=== PATIENT | female | born 1990 | race Caucasian/White ===

== ENCOUNTER 2017-11-03 01:15 | Observation (INO) | payer OTHER ==
[~2017-11-03] VITALS: Ht 165.1 cm; Wt 95.2 kg
[~2017-11-03 01:15] MED LIST: Amoxicillin875 MG PO; Bactrim Ds Tab1 EACH PO; CEPH500 PO; HEMOTO PR; IBUP600 PO; MIRENA BIRTH CONTROL; NAPR500 PO; Norco 5-325 Ta1 EACH PO; OLAN5 PO; PROM25 PO; SERT25 PO
[2017-11-03 01:58] LABS: BASOPHILS ABSOLUTE AUTO 0.07 K/mm3 (0.00-0.23); BASOPHILS PERCENT AUTO 1 % (0-2); EOSINOPHILS ABSOLUTE AUTO 0.57 K/mm3 (0.00-0.68); EOSINOPHILS PERCENT AUTO 6 % (0-6); Hematocrit 39.2 % (33.0-51.0); Hemoglobin 12.9 g/dL (11.5-16.0); IMMATURE GRAN ABSOLUTE AUTO 0.01 K/mm3 (0.00-0.10); IMMATURE GRAN PERCENT AUTO 0 % (0-1); LYMPHOCYTES ABSOLUTE AUTO 4.18 K/mm3 (0.84-5.20); LYMPHOCYTES PERCENT AUTO 42 % (21-46); MONOCYTES ABSOLUTE AUTO 0.83 K/mm3 (0.16-1.47); MONOCYTES PERCENT AUTO 8 % (4-13); Mean Corpuscular HGB 30.2 pg (26.0-34.0); Mean Corpuscular HGB Conc 32.9 g/dL (31.5-36.5); Mean Corpuscular Volume 92 fL (80-100); Mean Platelet Volume 9.8 fL (9.1-12.4); NEUTROPHILS ABSOLUTE AUTO 4.29 K/mm3 (1.96-9.15); NEUTROPHILS PERCENT AUTO 43 % (41-73); Platelet Count 340 K/mm3 (150-400); RDW Coefficient Variation 12.2 % (11.7-14.2); RDW Standard Deviation 41.4 fL (35.1-46.3); Red Blood Cell Count 4.27 M/mm3 (3.80-5.20); White Blood Cell Count 9.95 K/mm3 (4.00-11.30)
[2017-11-03 02:20] LABS: Alanine Aminotransfer (ALT/SGP 17 U/L (12-78); Albumin, Blood 3.9 g/dL (3.4-5.0); Albumin/Globulin Ratio 1.1 (0.8-1.8); Alk Phos 97 U/L (50-136); Anion Gap 9 mmol/L (6-16); Aspartate Aminotrans (AST/SGOT 16 U/L (12-37); Bilirubin, Total 0.6 mg/dL (0.1-1.0); Blood Urea Nitrogen 15 mg/dL (8-24); Bun/Creatinine Ratio 23.4 (12.0-20.0); CO2, Blood 24 mmol/L (21-32); Calcium, Blood 8.5 mg/dL (8.5-10.1); Chloride, Blood 107 mmol/L (98-108); Creatinine, Blood 0.64 mg/dL (0.40-1.00); Ethanol (Alcohol), Blood, Med <3 mg/dL; Globulin, Blood 3.7 g/dL (2.2-4.0); Glomerular Filtration Rate >60 (60-); Glucose, Blood 95 mg/dL (70-99); Potassium, Blood 3.8 mmol/L (3.5-5.5); Salicylate 2.8 mg/dL (2.8-20.0); Sodium, Blood 140 mmol/L (136-145); Total Protein, Blood 7.6 g/dL (6.4-8.2); Troponin I <0.015 ng/mL (0.000-0.040)
[2017-11-03 02:37] LABS: Acetaminophen, Random <2.0 ug/mL (10.0-30.0)
[2017-11-03 04:17] LABS: Source, Urine Clean Catch
[2017-11-03 04:20] LABS: Bilirubin, Urine Neg (Neg); Blood, Urine 5+ (Neg); Glucose Qualitative, Urine Neg (Neg); Ketones, Urine 1+ (Neg); Leukocyte Esterase, Urine 2+ (Neg); Nitrite, Urine Pos (Neg); Protein, Urine 1+ (Neg); Specific Gravity, Urine 1.025 (1.003-1.022); Urobilinogen, Urine NORM (Normal)
[2017-11-03 04:22] LABS: Appearance, Urine Hazy (Clear); Color, Urine Amber (P-Yellow)
[2017-11-03 04:26] LABS: Bacteria Many /hpf; Red Blood Cells, Urine 0-2 /hpf (0-2); Squamous Epithelial Cells Few /hpf (Few)
[2017-11-03 04:40] LABS: U Amphetamine Screen DETECTED; U Barbituate Screen Not Detected; U Benzodiazapine Screen Not Detected; U Buprenorphine Screen Not Detected; U Cannabinoids Screen DETECTED; U Cocaine Screen Not Detected; U Methadone Screen Not Detected; U Methamphetamine Screen DETECTED; U Opiates Screen DETECTED; U Oxycodone Screen Not Detected; U Phencyclidine Screen Not Detected; U Propoxyphene Screen Not Detected
[2017-11-04 07:11] LABS: HBSAG SCREEN Negative (Negative); HEP A AB, IGM Negative (Negative); HEP B CORE AB, IGM Negative (Negative); HEP C VIRUS AB <0.1 (0.0-0.9)
[2017-11-05] MEDS ORDERED: Catapres0.1 MG PO (13:17)
[2017-11-05] MEDS ORDERED: Vistaril25 MG PO (13:17)
[2017-11-05] MEDS ORDERED: IBUP600 PO (13:17)
== END 2017-11-05 13:40 | disposition home or self-care (01) ==
LOC: ER 01:15 → EOR 01:16
PROVIDERS: Emergency Medicine
DX: T40.2X2A Poisoning by other opioids, intentional self-harm, initial encounter (principal); F15.10 Other stimulant abuse, uncomplicated; F11.20 Opioid dependence, uncomplicated; F32.89 Other specified depressive episodes; F17.200 Nicotine dependence, unspecified, uncomplicated; F20.9 Schizophrenia, unspecified; F32.9 Major depressive disorder, single episode, unspecified; N39.0 Urinary tract infection, site not specified; Z79.899 Other long term (current) drug therapy
CPT/HCPCS: 36415; 71046; 80053; 80074; 81001; 81025; 84443; 84484; 85025; 87077; 87086; 87186; 93005; 93010; 96361; 96374; 99285-25; G0378; G0480; J2310; J7030; Q3014

== ENCOUNTER 2018-03-11 16:42 | Emergency (ER) | payer OTHER ==
[~2018-03-11] VITALS: Ht 167.6 cm; Wt 87.1 kg
[~2018-03-11 16:42] MED LIST changes: +Catapres0.1 MG PO; +Flagyl500 MG PO; +Vibramycin100 MG PO; +Vistaril25 MG PO
[2018-03-11] MEDS ORDERED: METH5 (16:59)
[2018-03-11 17:14] LABS: Source, Urine Clean Catch
[2018-03-11 17:21] LABS: Appearance, Urine Cloudy (Clear); Bilirubin, Urine Neg (Neg); Blood, Urine 5+ (Neg); Color, Urine Yellow (P-Yellow); Glucose Qualitative, Urine Neg (Neg); Ketones, Urine Neg (Neg); Leukocyte Esterase, Urine 2+ (Neg); Nitrite, Urine Pos (Neg); Protein, Urine 2+ (Neg); Specific Gravity, Urine 1.015 (1.003-1.022); Urobilinogen, Urine 1+ (Normal)
[2018-03-11 17:28] LABS: Squamous Epithelial Cells Few /hpf (Few)
[2018-03-11 17:29] LABS: Bacteria Few /hpf
[2018-03-11 18:08] LABS: Alanine Aminotransfer (ALT/SGP 554 U/L (12-78); Albumin, Blood 3.6 g/dL (3.4-5.0); Albumin/Globulin Ratio 0.9 (0.8-1.8); Alk Phos 483 U/L (50-136); Anion Gap 7 mmol/L (6-16); Aspartate Aminotrans (AST/SGOT 523 U/L (12-37); Bilirubin, Total 1.6 mg/dL (0.1-1.0); Blood Urea Nitrogen 9 mg/dL (8-24); Bun/Creatinine Ratio 15.8 (12.0-20.0); CO2, Blood 26 mmol/L (21-32); Calcium, Blood 8.5 mg/dL (8.5-10.1); Chloride, Blood 103 mmol/L (98-108); Creatinine, Blood 0.57 mg/dL (0.40-1.00); Globulin, Blood 3.9 g/dL (2.2-4.0); Glomerular Filtration Rate >60 (60-); Glucose, Blood 97 mg/dL (70-99); Sodium, Blood 136 mmol/L (136-145); Total Protein, Blood 7.5 g/dL (6.4-8.2)
[2018-03-11] MEDS ORDERED: CEFD300 PO (18:20)
[2018-03-11] MEDS ORDERED: Cyclobenzaprine5 MG PO (18:49)
== END 2018-03-11 19:15 | disposition home or self-care (01) ==
LOC: ER 16:42
PROVIDERS: Emergency Medicine
DX: N12 Tubulo-interstitial nephritis, not specified as acute or chronic (principal); F11.23 Opioid dependence with withdrawal; M79.89 Other specified soft tissue disorders; Z79.899 Other long term (current) drug therapy; F20.9 Schizophrenia, unspecified; F17.200 Nicotine dependence, unspecified, uncomplicated
CPT/HCPCS: 36415; 80053; 81001; 81025; 87077; 87086; 87186; 96365; 96375; 99283-25; J0696; J2405; J7030

== ENCOUNTER 2018-05-18 19:20 | Emergency (ER) | payer OTHER ==
[~2018-05-18] VITALS: Ht 165.1 cm; Wt 87.5 kg
[~2018-05-18 19:20] MED LIST changes: +CEFD300 PO; +Cyclobenzaprine5 MG PO; +METH5
[2018-05-18] MEDS ORDERED: SERT50 PO (19:34)
== END 2018-05-18 23:29 | disposition left against medical advice (07) ==
LOC: ER 19:20
DX: Z53.21 Procedure and treatment not carried out due to patient leaving prior to being seen by health care provider (principal)

== ENCOUNTER → 2018-08-02 | Outpatient (CLI) | payer OTHER ==
[~2018-08-02] MED LIST changes: +SERT50 PO
[2018-08-06 13:06] LABS: HPV 16 Negative (Negative); HPV 18 Negative (Negative); HPV OTHER HR TYPES Negative (Negative)
== END | disposition home or self-care (01) ==
LOC: LAB 18:25 → LAB SHORT 18:25
PROVIDERS: Nurse Practitioner Family
DX: Z01.419 Encounter for gynecological examination (general) (routine) without abnormal findings (principal)
CPT/HCPCS: 87624; G0123

== ENCOUNTER → 2021-07-15 | Outpatient (CLI) | payer OTHER ==
[2021-07-16 09:09] LABS: HBSAG SCREEN Negative (Negative); HCV ANTIBODY >11.0 (0.0-0.9); HIV AB/P24 AG SCREEN Non Reactive (Non Reactive)
[2021-07-17 00:10] LABS: HPV 16 Negative (Negative); HPV 18 Negative (Negative); HPV OTHER HR TYPES Negative (Negative)
[2021-07-19 10:48] LABS: CHLAMYDIA TRACHOMATIS, NAA Negative (Negative)
== END | disposition home or self-care (01) ==
LOC: LAB 13:00 → LAB SHORT 13:00
PROVIDERS: Family Medicine
DX: Z01.419 Encounter for gynecological examination (general) (routine) without abnormal findings (principal); Z11.3 Encounter for screening for infections with a predominantly sexual mode of transmission
CPT/HCPCS: 86592; 86803; 87340; 87389; 87491; 87591; 87624; G0123

== ENCOUNTER → 2022-05-23 | Outpatient (CLI) | payer OTHER | END | disposition home or self-care (01) | LOC: LAB SHORT 15:14 → LAB 15:14 | DX: N39.0 Urinary tract infection, site not specified (principal) | CPT/HCPCS: 87077; 87086; 87186 ==

== ENCOUNTER → 2023-06-07 | Outpatient (CLI) | payer OTHER ==
[~2023-06-07] MED LIST changes: +Voltaren100 GM
== END | disposition home or self-care (01) ==
LOC: LAB 19:18 → LAB SHORT 19:18
DX: L02.419 Cutaneous abscess of limb, unspecified (principal)
CPT/HCPCS: 87070; 87077; 87147; 87186; 87205

== ENCOUNTER 2024-11-24 07:28 | Inpatient (IN) | payer OTHER ==
[~2024-11-24] VITALS: Ht 165.1 cm; Wt 115.0 kg
[2024-11-24] VITALS (21 sets, daily range): BP systolic 90–129; BP diastolic 62–91
[2024-11-24] MEDS ORDERED: NS 1,000 ML IV SCH ×3 (08:55→11:20)
[2024-11-24] MEDS ORDERED: HYDROmorphone HCl/Pf 1MG SYR IV ONE ×2 (08:55→10:30)
[2024-11-24 09:29] LABS: Source, Urine Straight Cath
[2024-11-24 09:31] LABS: BASOPHILS ABSOLUTE AUTO 0.04 K/mm3 (0.00-0.23); BASOPHILS PERCENT AUTO 1 % (0-2); EOSINOPHILS ABSOLUTE AUTO 0.04 K/mm3 (0.00-0.68); EOSINOPHILS PERCENT AUTO 1 % (0-6); Hematocrit 41.8 % (33.0-51.0); Hemoglobin 13.7 g/dL (11.5-16.0); Mean Corpuscular HGB Conc 32.8 g/dL (31.5-36.5); Mean Corpuscular Volume 92 fL (80-100); NRBC ABSOLUTE 0.00 K/mm3 (0.00-0.02); NRBC Auto 0.0 /100 WBC (0.0-0.2); RDW Coefficient Variation 12.9 % (11.7-14.2); RDW Standard Deviation 43.4 fL (35.1-46.3)
[2024-11-24 09:32] LABS: Color, Urine Amber (P-Yellow); Glucose Qualitative, Urine Neg (Neg); Ketones, Urine Neg (Neg); Leukocyte Esterase, Urine 1+ (Neg); Protein, Urine 1+ (Neg); Specific Gravity, Urine 1.020 (1.003-1.022); Urobilinogen, Urine 2+ (Normal)
[2024-11-24 09:32] LABS: IMMATURE GRAN ABSOLUTE AUTO 0.03 K/mm3 (0.00-0.10); IMMATURE GRAN PERCENT AUTO 1 % (0-1); LYMPHOCYTES ABSOLUTE AUTO 0.21 K/mm3 (0.84-5.20); LYMPHOCYTES PERCENT AUTO 4 % (21-46); MONOCYTES ABSOLUTE AUTO 0.03 K/mm3 (0.16-1.47); MONOCYTES PERCENT AUTO 1 % (4-13); NEUTROPHILS ABSOLUTE AUTO 5.67 K/mm3 (1.96-9.15); NEUTROPHILS PERCENT AUTO 94 % (41-73)
[2024-11-24] MEDS ORDERED: METH10 PO (09:35)
[2024-11-24 09:52] LABS: Bilirubin, Urine 1+ (Neg)
[2024-11-24 09:52] LABS: Alanine Aminotransfer (ALT/SGP 244 U/L (12-78); Albumin, Blood 3.2 g/dL (3.4-5.0); Albumin/Globulin Ratio 1.0 (0.8-1.8); Anion Gap 13 mmol/L (3-11); Aspartate Aminotrans (AST/SGOT 416 U/L (12-37); Beta HCG, Quantitative, Serum <1 mIU/mL (0-3); Bilirubin, Total 2.9 mg/dL (0.1-1.0); Blood Urea Nitrogen 24 mg/dL (8-24); CO2, Blood 17 mmol/L (21-32); Calcium, Blood 8.5 mg/dL (8.5-10.1); Chloride, Blood 107 mmol/L (98-108); Creatinine, Blood 1.05 mg/dL (0.40-1.00); Globulin, Blood 3.3 g/dL (2.2-4.0); Glucose, Blood 115 mg/dL (70-99); Potassium, Blood 3.3 mmol/L (3.5-5.5); Sodium, Blood 134 mmol/L (136-145); Total Protein, Blood 6.5 g/dL (6.4-8.2)
[2024-11-24] MEDS ORDERED: Piperacillin/Tazobactam Sod 3.375 GM in NS 100 ML IV ONE (10:25)
[2024-11-24] MEDS ORDERED: Vancomycin (Pharmacy Consult) IV PRN (12:35)
[2024-11-24] MEDS ORDERED: FLU VACC TS2025-26(6MOS UP)/PF 45 MCG/0.5 ML SYRINGE IM SCH (14:15)
[2024-11-24] MEDS ORDERED: Vancomycin (Pharmacy Consult) IV SCH (14:20)
[2024-11-24] MEDS ORDERED: Piperacillin/Tazobactam Sod 3.375 GM in NS 100 ML IV SCH (16:00)
[2024-11-24] MEDS ORDERED: HYDROmorphone HCl/Pf 1MG SYR IV PRN (17:55)
--- NOTE | 2024-11-24 18:47 | NUR ---
SHIFT SUMMARY: PT ARRIVED FROM ED AT APPROX 1711. PT DROUSY AND UNABLE TO STAY AWAKE LONG ENOUGH TO ANSWER QUESTIONS. DOES NOT APPEAR TO BE IN ANY DISTRESS. VSS. MAP >65. DENIES ANY CP, PRESSURE, TIGHTNESS OR SOB. ON RA. SINUS TACH ON THE MONITOR. PUREWICK PLACED LATER IN SHIFT DUE TO PT NOT BEING AWAKE ENOUGH TO GET OUT OF BED. NO SIGNIFICANT EVENTS HAPPENED DURING THIS SHIFT.
[2024-11-24] MEDS ORDERED: BUPR100 PO (20:13)
[2024-11-24] MEDS ORDERED: Polyethylene Glycol 3350 17 gm PO SCH (22:20)
[2024-11-24] MEDS ORDERED: Magnesium Hydroxide Conc 10 ML UDC PO ONE (22:20)
[2024-11-24] MEDS ORDERED: Lidocaine 4% 1 Patch TOP SCH (22:25)
[2024-11-25] VITALS (34 sets, daily range): BP systolic 83–125; BP diastolic 45–102
--- NOTE | 2024-11-25 05:46 | NUR ---
END OF SHIFT SUMMARY PT IS A&0 X4 AND ABLE TO MAKE NEEDS KNOWN. PT CAN MOVE EXTREMITIES EQUALLY AND BILATERALLY. CONTINUOUS CARDAIC MONITORING IS IN PLACE, SHOWING SINUS RHYTHM, HR IN THE 90'S-100'S, MAP >65. PT IS ON RA WITH SP02 >92%. PT IS ABLE TO TOLERATE PO INTAKE WELL. SBA TO THE BSC, PT HAD A BM THIS SHIFT. PIV'S ARE IN PLACE TO R HAND AND LAC. BED IN LOWEST POSITION, CARE CONTINUES, WILL REPORT TO ONCOMING SHIFT.
[2024-11-25 06:40] LABS: Hematocrit 36.7 % (33.0-51.0); Hemoglobin 12.5 g/dL (11.5-16.0); Mean Corpuscular HGB Conc 34.1 g/dL (31.5-36.5); Mean Corpuscular Volume 91 fL (80-100); NRBC ABSOLUTE 0.00 K/mm3 (0.00-0.02); NRBC Auto 0.0 /100 WBC (0.0-0.2); RDW Coefficient Variation 13.1 % (11.7-14.2); RDW Standard Deviation 43.5 fL (35.1-46.3)
[2024-11-25 06:57] LABS: Alanine Aminotransfer (ALT/SGP 155.0 U/L (12-78); Albumin, Blood 2.4 g/dL (3.4-5.0); Albumin/Globulin Ratio 0.8 (0.8-1.8); Anion Gap 11.0 mmol/L (3-11); Aspartate Aminotrans (AST/SGOT 124.0 U/L (12-37); Bilirubin, Total 2.9 mg/dL (0.1-1.0); Blood Urea Nitrogen 18.0 mg/dL (8-24); CO2, Blood 22.0 mmol/L (21-32); Calcium, Blood 7.3 mg/dL (8.5-10.1); Chloride, Blood 107.0 mmol/L (98-108); Creatinine, Blood 0.84 mg/dL (0.40-1.00); Globulin, Blood 2.9 g/dL (2.2-4.0); Glucose, Blood 95.0 mg/dL (70-99); Potassium, Blood 2.9 mmol/L (3.5-5.5); Sodium, Blood 137.0 mmol/L (136-145); Total Protein, Blood 5.3 g/dL (6.4-8.2)
[2024-11-25 07:07] LABS: BAND PERCENT MAN 23 % (0-8); BASOPHILS ABSOLUTE MAN 0.00 K/mm3 (0.00-0.23); BASOPHILS PERCENT MAN 0 % (0-2); EOSINOPHILS ABSOLUTE MAN 0.00 K/mm3 (0.00-0.68); EOSINOPHILS PERCENT MAN 0 % (0-6); LYMPHOCYTES ABSOLUTE MAN 1.20 K/mm3 (0.84-5.20); LYMPHOCYTES PERCENT MAN 4 % (21-46); METAMYELOCYTE ABSOLUTE MAN 0.60 K/mm3 (0.00-0.00); METAMYELOCYTE PERCENT MAN 2 % (0-0); MONOCYTES ABSOLUTE MAN 2.11 K/mm3 (0.16-1.47); MONOCYTES PERCENT MAN 7 % (4-13); NEUTROPHILS ABSOLUTE MAN 26.25 K/mm3 (1.96-9.15); SEG NEUTROPHILS PERCENT MAN 64 % (41-73)
[2024-11-25 07:12] LABS: Platelet Count 124 K/mm3 (150-400)
[2024-11-25] MEDS ORDERED: Metoclopramide HCl 5MG / ML 2ML Vial IV PRN (08:15)
[2024-11-25] MEDS ORDERED: Enoxaparin 40 MG/0.4 ML SYR SC SCH (09:00)
--- NOTE | 2024-11-25 18:14 | NUR ---
SHIFT SUMMARY: PT A&OX4. FOLLOWS COMMANDS AND MAKES NEEDS KNOWN TO STAFF. PT WAS ABLE TO GET UP TO THE TOILET WITH SBA. URINE IS STILL TEA/JOSE COLORED. PT DID HAVE A BOWEL MOVEMENT TODAY. REMAINS ON RA. DENIES ANY CP, PRESSURE, TIGHTNESS OR SOB. PT WAS BRIEFLY HYPOTENSIVE THIS AFTERNOON. FLUIDS WERE STARTED AND PTS BLOOD PRESSURE RESPONDED WELL. LR RUNNING AT 125ML/HR. NO OTHER SIGNIFICANT EVENTS HAPPENED DURING THIS SHIFT. WILL CONTINUE TO CARE FOR PT TILL END OF SHIFT.
--- NOTE | 2024-11-25 19:46 | NUR ---
ASSUMPTION OF CARE: ASSUMED CARE OF PT AT 1900. PT ALERT AND ORIENTED X4. FOLLOWS DIRECTION AND MAKES NEEDS KNOWN. PT SOMNOLENT WHEN NOT STIMULATED BUT AWAKENS TO VERBAL STIMULI. ABLE TO MOVE ALL EXTREMETIES. ON RA WITH SPO2 MID TO HIGH 90'S WITH NO C/O SOB. ON CARBON CLEANER IN SR WITH HR 80-90'S. SBP 100'S. DENIES CP/PRESSURE. LR INFUSING AT 125 ML/HR. PIV TO LAC/RW BOTH PATENT. PT ABLE TO USE TOILET WITH SBA. DENIES ANY PAIN AT TIME OF ASSESSMENT. TOLERATING PO INTAKE WITH NO GI COMPLAINTS. REPOSITIONING IN BED IND. BED LOCKED, CALL LIGHT IN REACH.
[2024-11-25 23:16] LABS: Vancomycin, Trough 14.4 ug/mL (5.0-10.0)
[2024-11-26] VITALS (8 sets, daily range): BP systolic 102–117; BP diastolic 66–85
--- NOTE | 2024-11-26 05:22 | NUR ---
SHIFT SUMMARY: PT REMAINS ALERT AND ORIENTED T/O THE SHIFT. MUCH MORE AWAKE THIS SHIFT. ON RA WITH SPO2 MID TO HIGH 90'S. LUNGS CLEAR/DIM. MEDICAL SUPPORT ASSISTANT IN PLACE, SR WITH HR 80'S. SBP 100-110'S. MAP >65. DENIES CP/SOB. PT ENDORSING PAIN IN BILATERAL HANDS THIS AM, BOTH HANDS EDEMATOUS AND WARM TO TOUCH. HAS GOOD PULSES AND SENSATION NOTED. PT GIVEN AN ICE PACK AND ENCOURAGED TO MOVE MUCH POSSIBLE. DR. OLIVER MADE AWARE AND ORDER GIVEN FOR ONE TIME DOSE OF TORRADOL. LR DC'ED THIS SHIFT. PT TOLERATING PO INTAKE. PIV TO LAC INTACT AND INFUSING. PIV TO RIGHT HAND DC'ED THIS SHIFT. ABLE TO TRANSFER TO THE TOILET, VOIDING LARGE AMOUNTS OF URINE. NO BM THIS SHIFT. PT SIGNIFICANT OTHER AT BEDSIDE T/O THE SHIFT. BED LOCKED, CALL LIGHT IN REACH.
[2024-11-26] MEDS ORDERED: Ketorolac Tromethamine 15mg Vial IV ONE ×2 (05:30→10:05)
[2024-11-26 09:19] LABS: BASOPHILS ABSOLUTE AUTO 0.09 K/mm3 (0.00-0.23); BASOPHILS PERCENT AUTO 1 % (0-2); EOSINOPHILS ABSOLUTE AUTO 0.18 K/mm3 (0.00-0.68); EOSINOPHILS PERCENT AUTO 1 % (0-6); Hematocrit 35.6 % (33.0-51.0); Hemoglobin 12.0 g/dL (11.5-16.0); IMMATURE GRAN ABSOLUTE AUTO 0.43 K/mm3 (0.00-0.10); IMMATURE GRAN PERCENT AUTO 2 % (0-1); LYMPHOCYTES ABSOLUTE AUTO 2.97 K/mm3 (0.84-5.20); LYMPHOCYTES PERCENT AUTO 16 % (21-46); MONOCYTES ABSOLUTE AUTO 0.86 K/mm3 (0.16-1.47); MONOCYTES PERCENT AUTO 5 % (4-13); Mean Corpuscular HGB Conc 33.7 g/dL (31.5-36.5); Mean Corpuscular Volume 93 fL (80-100); NEUTROPHILS ABSOLUTE AUTO 13.63 K/mm3 (1.96-9.15); NEUTROPHILS PERCENT AUTO 75 % (41-73); NRBC ABSOLUTE 0.00 K/mm3 (0.00-0.02); NRBC Auto 0.0 /100 WBC (0.0-0.2); RDW Coefficient Variation 13.5 % (11.7-14.2); RDW Standard Deviation 46.2 fL (35.1-46.3)
[2024-11-26 10:02] LABS: Alanine Aminotransfer (ALT/SGP 110.0 U/L (12-78); Albumin, Blood 2.3 g/dL (3.4-5.0); Albumin/Globulin Ratio 0.7 (0.8-1.8); Anion Gap 11.0 mmol/L (3-11); Aspartate Aminotrans (AST/SGOT 72.0 U/L (12-37); Bilirubin, Direct 0.4 mg/dL (0.0-0.3); Bilirubin, Indirect 0.6 mg/dL (0.1-0.7); Bilirubin, Total 1.0 mg/dL (0.1-1.0); Blood Urea Nitrogen 8.0 mg/dL (8-24); CO2, Blood 21.0 mmol/L (21-32); Calcium, Blood 8.1 mg/dL (8.5-10.1); Chloride, Blood 110.0 mmol/L (98-108); Creatinine, Blood 0.59 mg/dL (0.40-1.00); Globulin, Blood 3.3 g/dL (2.2-4.0); Glucose, Blood 112.0 mg/dL (70-99); Potassium, Blood 3.8 mmol/L (3.5-5.5); Sodium, Blood 138.0 mmol/L (136-145); Total Protein, Blood 5.6 g/dL (6.4-8.2)
[2024-11-26 10:28] LABS: Platelet Count 129 K/mm3 (150-400)
--- NOTE | 2024-11-26 13:08 | NUR ---
I assume care for this patient approximately 0700am,TOA received from night RN @ BEDSIDE.Patient sleeping but arousable.VSS,Significant other @ bedside.Patient is on room air, able to answer questions comfortably.Patient is able to move all extermities,turn self.Patient is on bed at this time.Bed at lowest position,environment clutter free and call borrego within reach,Patient is aware about call borrego use,acknowleged by patient.White board updated.
[2024-11-26 17:10] LABS: HEPATITIS B SURFACE ANTIBODY <3.10 IU/L; HEPATITIS BE ANTIBODY Negative (Negative); HEPATITIS BE ANTIGEN Negative (Negative)
--- NOTE | 2024-11-26 17:54 | NUR ---
Shift Summary- Patient is alert and oriented X 4, GCS-15 and RASS-0.Patient moves all limbs and can walk with supervision.Patient reposition self and had a shower during the day.Patient VSS,BP- 114/78,MAP-87.Patient significant other stayed @ bedside during the day.Patient has remained on Room Air during the day.Patient did has pain in the morning after starting antibiotics on left arm.Patient did complain swelling and pain.Notified MD and MD ordered Doppler ultrasound for bilateral arms and completed by tech.Once results becomes available,notified MD.No new orders received.Bed at lowest position,call borrego within reach.
--- NOTE | 2024-11-27 02:16 | NUR ---
TRANSFER NOTE REPORT CALLED TO RAIMUNDO GORE, [facility]RD FLOOR [facility]. REVIEWED ALL OUTSTANDING ISSUES AND PROBLEMS TO DATE. VSS, AFEBRILE.
[2024-11-27 02:57] VITALS: BP 121/88
--- NOTE | 2024-11-27 03:55 | NUR ---
SHIFT SUMMARY: PT TRANSFERRED FROM ICU AT ~0330. PT IS AOX4. VSS. PT COMPLAINED ON MINIMAL PAIN TO L HIP. ICE PACK GIVEN. CALL LIGHT IS WITHIN REACH. BED IS LOW AND LOCKED.
[2024-11-27 08:04] VITALS: BP 125/84
[2024-11-27] MEDS ORDERED: CefTRIAXone Sodium 1,000 MG in NS 100 ML IV SCH (09:00)
[2024-11-27 09:44] LABS: HIV 1,2 COMBO ANTIGEN/ANTIBODY Negative (Negative)
[2024-11-27] MEDS ORDERED: AMOCLA875 PO (10:08)
--- NOTE | 2024-11-27 11:28 | NUR ---
DISCHARGE/SHIFT SUMMARY- PT DISCHARGING BY [facility]ERENA TO HOME WITH HER SIGNIFICANT OTHER. NEW AT HOME MED AMOX FAXED IN TO [facility].
[2024-11-28 16:13] LABS: ANTI-NUCLEAR AB ANA,IGG ELISA None Detected (None Detected)
== END 2024-11-27 11:39 | disposition home or self-care (01) | DRG 871 ==
LOC: ER 07:28 → MEDS 14:14 → ICUE 14:14 → MEDS 11-27 02:46
PROVIDERS: Student in an Organized Health Care Education/Training Program; ADMIT Internal Medicine
PROC: 3E033XZ Introduction of Vasopressor into Peripheral Vein, Percutaneous Approach (ICD-10-PCS; principal; 2024-11-24)
PROC: 3E03329 Introduction of Other Anti-infective into Peripheral Vein, Percutaneous Approach (ICD-10-PCS; 2024-11-24)
DX: A41.51 Sepsis due to Escherichia coli [E. coli] (principal); R65.21 Severe sepsis with septic shock; N39.0 Urinary tract infection, site not specified; E87.21 Acute metabolic acidosis; I38 Endocarditis, valve unspecified; G89.29 Other chronic pain; F20.9 Schizophrenia, unspecified; F32.A Depression, unspecified; F17.210 Nicotine dependence, cigarettes, uncomplicated; M16.12 Unilateral primary osteoarthritis, left hip; E66.9 Obesity, unspecified; E87.6 Hypokalemia; F15.90 Other stimulant use, unspecified, uncomplicated; K02.9 Dental caries, unspecified; Z86.19 Personal history of other infectious and parasitic diseases; Z79.899 Other long term (current) drug therapy
CPT/HCPCS: 36415; 51701; 70491; 71046; 74177; 76705; 80048; 80053; 80076; 80202; 81001; 83605; 83690; 83735; 84145; 84702; 85025; 86038; 86707; 87077; 87086; 87186; 87340; 87350; 87389; 93005; 93010; 93306; 93970; 94762; 96361; 96365; 96366; 96367; 96368; 96375; 96376; 99285-25; A9270; J0696; J1171; J1650; J1885; J2543; J2765; J3373; J3480; J7030; J7040; J7050; J7120; Q9967

== ENCOUNTER → 2024-12-02 | Outpatient (CLI) | payer OTHER ==
[~2024-12-02] MED LIST changes: +AMOCLA875 PO; +BUPR100 PO; +METH10 PO
[2024-12-02 18:00] LABS: Source, Urine Clean Catch
[2024-12-02 18:22] LABS: Bilirubin, Urine Neg (Neg); Color, Urine Yellow (P-Yellow); Glucose Qualitative, Urine Neg (Neg); Ketones, Urine Neg (Neg); Leukocyte Esterase, Urine Neg (Neg); Protein, Urine 1+ (Neg); Specific Gravity, Urine 1.025 (1.003-1.022); Urobilinogen, Urine NORM (Normal)
== END ==
LOC: LAB SHORT 17:57 → LAB 17:57
PROVIDERS: Nurse Practitioner Family
DX: N30.00 Acute cystitis without hematuria (principal)
CPT/HCPCS: 87086